=== PATIENT | male | born 1960 | race Caucasian/White ===

== ENCOUNTER 2018-08-13 18:25 | Emergency (ER) | payer MEDICAID ==
[~2018-08-13] VITALS: Ht 182.9 cm; Wt 102.3 kg
[2018-08-13 18:33] VITALS: Ht 182.9 cm; Wt 102.3 kg
[2018-08-13 22:17] LABS: BASOPHILS 0.3 % (0-2); EOSINOPHILS 2.5 % (0-7); HEMATOCRIT 46.1 % (42.0-54.0); HEMOGLOBIN 16.2 g/dL (13.5-17.5); IMMATURE GRANULOCYTES 0.2 % (0-5); LYMPHOCYTES 25.3 % (15-50); MCHC 35.1 g/dL (31.0-37.0); MCV 96.8 fL (80.0-100.0); MEAN PLATELET VOLUME 10.2 fL (7.4-10.4); MONOCYTES 10.3 % (2-11); NEUTROPHILS 61.4 % (40-80); PLATELET COUNT 243 10x3/uL (130-400); RBC 4.76 10x6/uL (4.20-6.10); RDW 13.7 % (11.5-14.5); WBC 9.1 10x3/uL (4.8-10.8)
[2018-08-13 22:28] LABS: ALBUMIN 3.3 g/dL (3.4-5.0); ALKALINE PHOSPHATASE 84 U/L (46-116); ALT (SGPT) 49 U/L (10-68); BILIRUBIN - TOTAL 0.32 mg/dL (0.2-1.3); C-REACTIVE PROTEIN 1.5 mg/dL (0.0-0.9); CALC OSMOLALITY 277 mosm/kg (275-300); CALCIUM 8.8 mg/dL (8.5-10.1); CARBON DIOXIDE 27.9 mmol/L (21.0-32.0); CHLORIDE - SERUM 105 mmol/L (98-107); GLUCOSE 98 mg/dL (74-106); POTASSIUM - SERUM 3.9 mmol/L (3.5-5.1); PROTEIN - SERUM 7.3 g/dL (6.4-8.2); SODIUM 140 mmol/L (136-145); UREA NITROGEN 9 mg/dL (7-18); eGFR NON AFRICAN AMERICAN 82 mL/min (90-120)
[2018-08-13] MEDS ORDERED: ULTRAM50 MG PO (23:56)
[2018-08-14 00:05] VITALS: BP 134/79
== END 2018-08-14 00:05 | disposition home or self-care (01) ==
LOC: D.ER 18:25
PROVIDERS: Emergency Medicine
DX: S22.20XA Unspecified fracture of sternum, initial encounter for closed fracture (principal); V49.9XXA Car occupant (driver) (passenger) injured in unspecified traffic accident, initial encounter; Y93.89 Activity, other specified; Y92.410 Unspecified street and highway as the place of occurrence of the external cause; S20.219A Contusion of unspecified front wall of thorax, initial encounter; R20.2 Paresthesia of skin